=== PATIENT | male | born 1975 | race Hispanic/Latino ===

== ENCOUNTER 2018-04-10 13:41 | Emergency (ER) | payer BC ==
[2018-04-10 14:08] VITALS: RESP 18; O2SAT 100; BMI 27.1
[2018-04-10] MEDS ORDERED: Sodium Chloride 0.9% 1,000 ML IV STA (14:27)
[2018-04-10 14:48] LABS: BASO # 0.01 K/mm3 (0.0-2.0); BASO % 0.1 % (0.0-3.0); GRAN # 4.91 (1.4-6.5); GRAN % 72.2 % (50.0-68.0); HEMOGLOBIN 16.6 g/dL (14.0-18.0); LYMPH # 1.4 (1.2-3.4); LYMPH % 20.4 % (22.0-35.0); MEAN CELL VOLUME 81.4 fl (80.0-105.0); MEAN CORPUSCULAR HEMOGLOBIN 27.8 pg (25.0-35.0); MEAN CORPUSCULAR HGB CONC 34.1 g/dl (31.0-37.0); MEAN PLATELET VOLUME 9.7 fl (7.0-11.0); MONO # 0.5 (0.1-0.6); MONO % 7.3 % (1.0-6.0); RBC 5.98 10^6/uL (3.5-6.1); RED CELL DISTRIBUTION WIDTH 14.2 % (11.5-14.5); WHITE BLOOD COUNT 6.8 10^3/ul (4.5-11.0)
[2018-04-10 14:58] LABS: ALB/GLOB RATIO 1.5 (1.1-1.8); ALBUMIN 4.7 g/dL (3.0-4.8); ALT/SGPT 24 U/L (7-56); AMYLASE 98 U/L (35-125); AST/SGOT 23 U/L (17-59); BLOOD UREA NITROGEN 15 mg/dL (7-21); CALCIUM 10.3 mg/dL (8.4-10.5); GFR NON-AFRICAN AMERICAN > 60; LIPASE 45 U/L (23-300)
--- NOTE | 2018-04-10 15:06 | ED PDOC ---
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 States He have never had this much alcohol at one and don't drink everyday. Admits abdominal pain only when vomiting. Denies fever, chills, chest pain, SOB, diaphoresis, melena, hematemesis, hemoptysis, any other complaint. Past Medical History - Provider Review Nursing Documentation Reviewed: Yes - Psychiatric Hx Substance Use: No - Anesthesia Hx Anesthesia: No Hx Anesthesia Reactions: No Hx Malignant Hyperthermia: No Family/Social History - Physician Review Nursing Documentation Reviewed: Yes Family/Social History: Unknown Family HX Smoking Status: Never Smoked Hx Alcohol Use: Yes Frequency of alcohol use: Socially Hx Substance Use: No Allergies/Home Meds Allergies/Adverse Reactions: Allergies No Known Allergies Allergy (Verified 04/10/18 14:10) Review of Systems - Physician Review All systems were reviewed & negative as marked: Yes - Review of Systems Constitutional: Normal Eyes: Normal ENT: Normal Respiratory: Normal Cardiovascular: Normal Gastrointestinal: Abdominal Pain, Nausea, Vomiting. absent: Constipation, Diarrhea, Hematochezia, Hematemesis Genitourinary Male: Normal Musculoskeletal: Normal Skin: Normal Neurological: Normal Endocrine: Normal Hemo/Lymphatic: Normal Psychiatric: Normal Physical Exam Vital Signs Reviewed: Yes Vital Signs Temp Pulse Resp BP Pulse Ox 04/10/18 13:56 97.8 F 97 H 18 120/73 100 Temperature: Afebrile Blood Pressure: Normal Pulse: Regular Respiratory Rate: Normal Appearance: Positive for: Well-Appearing, Non-Toxic, Comfortable Pain Distress: None Mental Status: Positive for: Alert and Oriented X 3 - Systems Exam Head: Present: Atraumatic, Normocephalic Pupils: Present: PERRL Extroacular Muscles: Present: EOMI Conjunctiva: Present: Normal Mouth: Present: Moist Mucous Membranes Neck: Present: Normal Range of Motion Respiratory/Chest: Present: Clear to Auscultation, Good Air Exchange. No: Respiratory Distress, Accessory Muscle Use Cardiovascular: Present: Regular Rate and Rhythm, Normal S1, S2. No: Murmurs Abdomen: Present: Normal Bowel Sounds, Other (Soft). No: Tenderness, Distention, Peritoneal Signs, Rebound, Guarding, McBurney's Point Tender Back: Present: Normal Inspection Upper Extremity: Present: Normal Inspection. No: Cyanosis, Edema Lower Extremity: Present: Normal Inspection. No: Edema Neurological: Present: GCS=15, CN II-XII Intact, Speech Normal Skin: Present: Warm, Dry, Normal Color. No: Rashes Psychiatric: Present: Alert, Oriented x 3, Normal Insight, Normal Concentration Medical Decision Making ED Course and Treatment: 04/10/18 18:23 Pt in ED for stated history. His PE was benign and he was hemodynamically stable. Labs 1L NS, Zofran was ordered On re evaluation pt stated he feels much better after the medication. His lab was unremarkable. UDS +THC. PT 's symptom likely secondary to his alcohol consumption. He was DC home with Zofran and pepcid. Referred to the clinic. - Lab Interpretations Lab Results: 04/10/18 14:20 04/10/18 14:20 Lab Results 04/10/18 14:20: Sodium 144, Potassium 4.4, Chloride 107, Carbon Dioxide 26, Anion Gap 15, BUN 15, Creatinine 0.9, Est GFR ( Amer) > 60, Est GFR (Non- Af Amer) > 60, Random Glucose 102, Calcium 10.3, Phosphorus 1.7 L, Magnesium 1.8, Total Bilirubin 0.6, AST 23, ALT 24, Alkaline Phosphatase 59, Total Protein 7.9, Albumin 4.7, Globulin 3.1, Albumin/Globulin Ratio 1.5, Amylase 98, Lipase 45 04/10/18 14:20: WBC 6.8, RBC 5.98, Hgb 16.6, Hct 48.7, MCV 81.4, MCH 27.8, MCHC 34.1, RDW 14.2, Plt Count 239, MPV 9.7, Gran % 72.2 H, Lymph % (Auto) 20.4 L, [place] % (Auto) 7.3 H, Eos % (Auto) 0.0 L, Baso % (Auto) 0.1, Gran # 4.91, Lymph # (Auto) 1.4, [place] # (Auto) 0.5, Eos # (Auto) 0.0, Baso # (Auto) 0.01 - Medication Orders Current Medication Orders: Sodium Chloride (Sodium Chloride 0.9%) 1,000 mls @ 999 mls/hr IV .Q1H1M STA Stop: 04/10/18 15:27 Last Admin: 04/10/18 14:39 Dose: 999 mls/hr eMAR Start Stop Document 04/10/18 14:39 [facility] (Rec: 04/10/18 14:40 [facility] [id number]) Intravenous Solution Start Date 04/10/18 Start Time 14:40 End Date 04/10/18 End time 15:40 Total Infusion Time 60 Discontinued Medications Ondansetron HCl (Zofran Inj) 4 mg IVP STAT STA Stop: 04/10/18 14:27 Last Admin: 04/10/18 14:40 Dose: 4 mg IVP Administration Document 04/10/18 14:40 [facility] (Rec: 04/10/18 14:40 [facility] [id number]) Charges for Administration # of IVP Administrations 1 Disposition/Present on Arrival - Present on Arrival Any Indicators Present on Arrival: No History of DVT/PE: No History of Uncontrolled Diabetes: No Urinary Catheter: No History of Decub. Ulcer: No History Surgical Site Infection Following: None - Disposition Have Diagnosis and Disposition been Completed?: Yes Diagnosis: Nausea & vomiting, Substance abuse Disposition: HOME/ ROUTINE Disposition Time: 16:50 Patient Plan: Discharge Condition: STABLE Discharge Instructions (ExitCare): Nausea and Vomiting, Adult (DC) Additional Instructions: Follow up with your Doctor Return to ED for any new symptoms Prescriptions: Famotidine [Pepcid] 20 mg PO DAILY #10 tab Ondansetron ODT [Zofran ODT] 4 mg PO Q6 #6 odt Referrals: PCP,NO [Primary Care Provider] - Follow up with primary Maris Gonzalez MD [Medical Doctor] - Follow up with primary Forms: [employer] (N[place]ian)
[2018-04-10 16:10] LABS: PH,URINE 8.5 (4.7-8.0); URINE BILIRUBIN NEGATIVE (NEGATIVE); URINE BLOOD NEGATIVE (NEGATIVE); URINE GLUCOSE (UA) NEGATIVE (NEGATIVE); URINE LEUKOCYTE ESTERASE NEGATIVE Leu/uL (NEGATIVE); URINE PROTEIN 100 mg/dL (<30 mg/dL); URINE UROBILINOGEN 0.2 E.U./dL (<1 E.U./dL)
[2018-04-10 16:11] LABS: URINE APPEARANCE SL CLOUDY (CLEAR); URINE COLOR YELLOW (YELLOW)
[2018-04-10 16:38] LABS: URINE RBC 0 - 2 /hpf (0-2); URINE WBC 0 - 2 /hpf (0-6)
[2018-04-10 16:39] LABS: URINE AMORPHOUS SEDIMENT FEW; URINE BACTERIA MANY (NEG)
[2018-04-10 16:43] LABS: BARBITURATES, UR NEGATIVE (NEGATIVE); BENZODIAZEPINES, UR NEGATIVE (NEGATIVE); OPIATES, UR NEGATIVE (NEGATIVE); PHENCYCLIDINE, UR NEGATIVE (NEGATIVE)
[2018-04-10 16:55] VITALS: BP 124/87; PULSE 78
[2018-04-10 17:04] VITALS: TEMP 98
== END 2018-04-10 17:04 | disposition home or self-care (01) ==
LOC: ED 13:41
DX: R11.2 Nausea with vomiting, unspecified (principal); F19.10 Other psychoactive substance abuse, uncomplicated
CPT/HCPCS: 80053; 81001; 82150; 83690; 83735; 84100; 85025; 96361; 96374; 99284; G0480; J2405; J7030